=== PATIENT | female | born 1960 | race Caucasian/White ===

== ENCOUNTER 2016-09-13 19:34 | Emergency (ER) | payer BC ==
[2016-09-13 20:11] VITALS: BP 132/90
--- NOTE | 2016-09-13 20:41 | UC ---
Eye Complaint HPI - HPI Summary HPI Summary: The patient comes in today for: 1. Right eye pain: Onset: 2-3 hours. Palliative/provocative: Nothing makes her symptoms better or worse. Quality: FB sensation. Region/radiation: Right eye. Severity: 6/10 Time: Comes and goes. 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 She states that the window was open, but she did not feel anything. Contacts: None. Treatment: She tried to wash her eye on the bus with a moist cloth. Vision: "OK." * - History of Current Complaint Chief Complaint: UCEye Stated Complaint: FB IN EYE Time Seen by Provider: 09/13/16 20:28 Hx Obtained From: Patient Hx Last Menstrual Period: "a few years.' - Allergies/Home Medications Allergies/Adverse Reactions: Allergies Allergy/AdvReac Type Severity Reaction Status Date / Time No Known Allergies Allergy Verified 03/20/15 11:47 PMH/Surg Hx/FS Hx/Imm Hx Previously Healthy: No Endocrine History Of: Denies: Diabetes, Thyroid Disease Cardiovascular History Of: Denies: Cardiac Disorders, Hypertension Respiratory History Of: Denies: COPD, Asthma GI/ History Of: Reports: Gastroesophageal Reflux Denies: Ulcer, Gastrointestinal Bleed, Gall Bladder Disease, Kidney Stones, Diverticulitis, Renal Disease, Urosepsis Neurological History Of: Denies: TIA, CVA, Dementia, Seizures, Migraine Psychological History Of: Reports: Anxiety - PRN XANAX, Depression - ON MEDICATION FOR Denies: Bipolar Disorder, Schizophrenia, Post Traumatic Stress Disorder Cancer History Of: Denies: Lung Cancer, Colorectal Cancer, Breast Cancer, Prostate Cancer, Cervical Cancer Other History Of: Negative For: HIV, Hepatitis B, Hepatitis C, Anticoagulant Therapy - Surgical History Surgical History: Yes Surgery Procedure, Year, and Place: Two [id number]. Uterine Ablations- LORDS IN [place] - Family History Known Family History: Positive: Hypertension Negative: Cardiac Disease - Social History Occupation: Employed Full-time Alcohol Use: Occasionally Substance Use Type: None Smoking Status (MU): Former Smoker Amount Used/How Often: 1/2 PPD X 10 YEARS Have You Smoked in the Last Year: No When Did the Patient Quit Smoking/Using Tobacco: 2.5 YEARS - Immunization History Most Recent Tetanus Shot: 12/2010 Review of Systems Constitutional: Negative Skin: Negative Eyes: Other - FB sensation. ENT: Negative Respiratory: Negative Cardiovascular: Negative Gastrointestinal: Negative Genitourinary: Negative Motor: Negative All Other Systems Reviewed And Are Negative: Yes Physical Exam Triage Information Reviewed: Yes Appearance: Well-Appearing, No Pain Distress, Well-Nourished Vital Signs: Initial Vital Signs Temp 98.4 F 09/13/16 20:06 Pulse 71 09/13/16 20:06 Resp 18 09/13/16 20:06 BP 132/90 09/13/16 20:06 Pulse Ox 100 09/13/16 20:06 Vital Signs Reviewed: Yes Eyes: Positive: Conjunctiva Clear, Other: - FB (small) of the upper inner eye lid.. Negative: Discharge ENT: Positive: Hearing grossly normal. Negative: Pharyngeal erythema, Nasal congestion, Nasal drainage, TM bulging, TM dull, TM red, Tonsillar swelling, Tonsillar exudate Dental: Negative: Gross Decay/Caries @, Dental Fracture @ Neck: Positive: Supple, Nontender, No Lymphadenopathy. Negative: Nuchal Rigidity Respiratory: Positive: Lungs clear, No respiratory distress, No accessory muscle use. Negative: Crackles, Wheezing Cardiovascular: Positive: RRR, No Murmur Abdomen Description: Positive: Nontender, No Organomegaly, Soft. Negative: Distended, Guarding Musculoskeletal: Positive: Strength Intact, ROM Intact, No Edema Neurological: Positive: Alert, Muscle Tone Normal Psychological: Positive: Age Appropriate Behavior, Consolable Skin: Negative: rashes, breakdown UC Physical Exam Vital Signs On Initial Exam: Initial Vitals Temp Pulse Resp BP Pulse Ox 98.4 F 71 18 132/90 100 09/13/16 20:06 09/13/16 20:06 09/13/16 20:06 09/13/16 20:06 09/13/16 20:06 - Eye Exam EOMI: Yes Eye Exam: right eye: fluorescein in - right upper eye lid had small FB removed. (-) corneal lesion., bilateral eye: PERRL Eye Complaint Course/Dx - Differential Dx/Diagnosis Differential Diagnosis/HQI/PQRI: Foreign Body Provider Diagnoses: Foreign body of right eye removed. Discharge - Discharge Plan Condition: Stable Disposition: HOME Patient Education Materials: Eye Foreign Body (ED) Forms: *Work Release Referrals: Natalie Perez MD [Primary Care Provider] - If Needed (Please see your primary care provider as he or she has directed you in the past and as needed.) Additional Instructions: Get [id number] anti-histamine eye drops as needed in the right eye.
[2016-09-13] MEDS ORDERED: Fluorescein Sodium TOPICAL* 1 MG TEST ONE (20:44)
[2016-09-13] MEDS ORDERED: BSS OPTH.SOL* BTL ONE (20:44)
[2016-09-13] MEDS ORDERED: Tetracaine 0.5% OPTH.SOL 15ML* BTL ONE (20:44)
== END 2016-09-13 21:10 | disposition home or self-care (01) ==
LOC: UCEAST 19:34
DX: T15.11XA Foreign body in conjunctival sac, right eye, initial encounter (principal); X58.XXXA Exposure to other specified factors, initial encounter; Y93.9 Activity, unspecified; Y92.9 Unspecified place or not applicable; Z87.891 Personal history of nicotine dependence
CPT/HCPCS: 99211; A9270-GY; G0463

== ENCOUNTER 2018-08-03 19:28 | Emergency (ER) | payer BC ==
--- NOTE | 2018-08-03 19:35 | UC ---
Throat Pain/Nasal Martin HPI - HPI Summary HPI Summary: 58 yo female presents with sinus pain/pressure/congestion. She tells me that for about 1.5 weeks she has had sinus congestion, sore throat, and dry cough. Her sore throat and dry cough have resolved, but her sinus symptoms have continued and have worsened over the last 3-4 days. She is having upper teeth pain due to sinus pressure and gets frontal headaches periodically throughout the day. She has been taking mucinex and nyquill/dayquill with no relief. Denies fever, chills, sore throat, cough, n/v. - History of Current Complaint Stated Complaint: SINUS CONGESTION Time Seen by Provider: 08/03/18 19:35 Hx Obtained From: Patient Hx Last Menstrual Period: "a few years.' Onset/Duration: Gradual Onset Severity: Moderate Pain Intensity: 7 Pain Scale Used: 0-10 Numeric - Allergies/Home Medications Allergies/Adverse Reactions: Allergies Allergy/AdvReac Type Severity Reaction Status Date / Time No Known Allergies Allergy Verified 08/03/18 19:42 PMH/Surg Hx/FS Hx/Imm Hx GI/ History: Gastroesophageal Reflux Other History Of: Negative For: HIV, Hepatitis B, Hepatitis C, Anticoagulant Therapy - Surgical History Surgical History: Yes Surgery Procedure, Year, and Place: Two [id number]-[id number]. Uterine Ablations- LORDS IN [place] - Family History Known Family History: Positive: Hypertension Negative: Cardiac Disease - Social History Occupation: Employed Full-time Lives: With Family Alcohol Use: Occasionally Substance Use Type: None Smoking Status (MU): Former Smoker Amount Used/How Often: 1/2 PPD X 10 YEARS Have You Smoked in the Last Year: No When Did the Patient Quit Smoking/Using Tobacco: 2.5 YEARS - Immunization History Most Recent Tetanus Shot: 12/2010 Review of Systems All Other Systems Reviewed And Are Negative: Yes Constitutional: Positive: Negative Skin: Positive: Negative Eyes: Positive: Negative ENT: Positive: Nasal Discharge, Sinus Congestion, Sinus Pain/Tenderness Respiratory: Positive: Negative Cardiovascular: Positive: Negative Gastrointestinal: Positive: Negative Neurovascular: Positive: Negative Neurological: Positive: Negative Psychological: Positive: Negative Physical Exam - Summary Physical Exam Summary: GENERAL: NAD. WDWN. No pain distress. SKIN: No rashes, sores, lesions, or open wounds. HEENT: Head: AT/NC Eyes: EOM intact. Conjunctiva clear without inflammation or discharge. Ears: Hearing grossly normal. TMs intact, no bulging, erythema, or edema. Nose: Nasal mucosa mildly swollen and erythematous with yellow/ clear discharge. TTP maxillary and frontal sinus. Positive post nasal drip Throat: Posterior oropharynx without exudates, erythema, or tonsillar enlargement. Uvula midline. NECK: Supple. Nontender. No lymphadenopathy. CHEST: CTAB. No r/r/w. No accessory muscle use. Breathing comfortably and in no distress. CV: RRR. Without m/r/g. Pulses intact. NEURO: Alert. PSYCH: Age appropriate behavior. Triage Information Reviewed: Yes Vital Signs: Vital Signs: Temp Pulse Resp BP Pulse Ox 97.8 F 81 16 134/99 98 08/03/18 19:35 08/03/18 19:35 08/03/18 19:35 08/03/18 19:35 08/03/18 19:35 Vital Signs Reviewed: Yes Throat Pain/Nasal Course/Dx - Course Course Of Treatment: Sinusitis - Differential Dx/Diagnosis Provider Diagnosis: Sinusitis Discharge - Sign-Out/Discharge Documenting (check all that apply): Patient Departure All imaging exams completed and their final reports reviewed: No Studies - Discharge Plan Condition: Stable Disposition: HOME Prescriptions: Amoxicillin PO (*) [Amoxicillin 875 MG (*)] 875 mg PO BID #14 tab Patient Education Materials: Sinusitis (ED) Referrals: Natalie Perez MD [Primary Care Provider] - Additional Instructions: If you develop a fever, shortness of breath, chest pain, new or worsening symptoms - please call your PCP or go to the ED. Your blood pressure was high at todays visit. Please see your primary provider within 4 weeks for recheck and re-evaluation. - Billing Disposition and Condition Condition: STABLE Disposition: Home - Attestation Statements Provider Attestation: I was available for consult. This patient was seen by the [facility]. The patient was not presented to, seen by, or examined by me. -Domo
[2018-08-03 19:41] VITALS: BP 134/99
== END 2018-08-03 20:15 | disposition home or self-care (01) ==
LOC: UCEAST 19:28
DX: J32.9 Chronic sinusitis, unspecified (principal); R05 Cough; J02.9 Acute pharyngitis, unspecified; K08.89 Other specified disorders of teeth and supporting structures; Z87.891 Personal history of nicotine dependence
CPT/HCPCS: 99212; G0463

== ENCOUNTER 2018-11-03 13:46 | Emergency (ER) | payer BC ==
[2018-11-03 15:19] VITALS: BP 138/92
[2018-11-03] MEDS ORDERED: Ketorolac INJ* 60 MG/2 ML VIAL IM ONE (15:45)
--- NOTE | 2018-11-03 15:45 | UC ---
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 she has been unable to work. she has tried some Ib. - History of Current Complaint Chief Complaint: UCBackPain Stated Complaint: BACK PAIN Time Seen by Provider: 11/03/18 15:35 Hx Obtained From: Patient Hx Last Menstrual Period: "a few years.' Onset/Duration: Sudden Onset Timing: Constant Pain Intensity: 7 Aggravating Factor(s): Movement Alleviating Factor(s): Rest Associated Signs And Symptoms: Negative: Fever, Weakness, Numbness, Tingling, Abdominal Pain, Flank Pain, Bladder Incontinence, Bowel Incontinence - Risk Factors Cauda Equina Risk Factors: Negative - Allergies/Home Medications Allergies/Adverse Reactions: Allergies Allergy/AdvReac Type Severity Reaction Status Date / Time No Known Allergies Allergy Verified 11/03/18 15:19 PMH/Surg Hx/FS Hx/Imm Hx - Additional Past Medical History Additional PMH: sleep disturbance Other History Of: Negative For: HIV, Hepatitis B, Hepatitis C, Anticoagulant Therapy - Surgical History Surgical History: Yes Surgery Procedure, Year, and Place: Two [id number]. Uterine Ablations- LORDS IN [place] - Family History Known Family History: Positive: Hypertension Negative: Cardiac Disease - Social History Occupation: Employed Full-time Alcohol Use: Rare Substance Use Type: None Smoking Status (MU): Former Smoker Amount Used/How Often: 1/2 PPD X 10 YEARS Have You Smoked in the Last Year: No When Did the Patient Quit Smoking/Using Tobacco: 6 years ago - Immunization History Most Recent Tetanus Shot: 12/2010 Review of Systems All Other Systems Reviewed And Are Negative: Yes Constitutional: Negative: Fever Gastrointestinal: Negative: Abdominal Pain Musculoskeletal: Positive: Decreased ROM - back Neurological: Negative: Weakness, Paresthesia, Numbness Physical Exam Triage Information Reviewed: Yes Appearance: Well-Appearing Vital Signs: Initial Vital Signs Temp 99.4 F 11/03/18 15:10 Pulse 94 11/03/18 15:10 Resp 18 11/03/18 15:10 BP 138/92 11/03/18 15:10 Pulse Ox 98 11/03/18 15:10 Vital Signs Reviewed: Yes Eyes: Positive: Conjunctiva Clear Neck: Positive: Supple, Nontender, No Lymphadenopathy, Other: - c-spine non tender Respiratory: Positive: Lungs clear Cardiovascular: Positive: RRR Abdomen Description: Positive: Nontender, No Organomegaly, Soft. Negative: Pulsatile Mass Bowel Sounds: Positive: Present Musculoskeletal: Positive: Other: - Back: no gross deformity, swelling or rash. spine is non tender. R paraspinal mm tenderness in lumbar region. Limited rom low back due to spasm. no saddle anesthesia. 5/5 strength, 2+ reflexes and sensation intactx4. steady gait. Neurological: Positive: Alert Psychological: Positive: Age Appropriate Behavior Skin: Negative: Rashes Back Pain Course/Dx - Differential Dx/Diagnosis Differential Diagnosis/HQI/PQRI: Other - no concern for infection, fx, acute abdomen or cauda equina. Provider Diagnosis: Low back pain Discharge - Sign-Out/Discharge Documenting (check all that apply): Patient Departure All imaging exams completed and their final reports reviewed: No Studies - Discharge Plan Condition: Stable Disposition: HOME Prescriptions: Cyclobenzaprine TAB* [Flexeril 10 MG TAB*] 10 mg PO TID PRN #10 tab PRN Reason: Pain - Back Naproxen [Naprosyn 500 mg tab] 500 mg PO BID 5 Days #10 tablet Patient Education Materials: Acute Low Back Pain (ED) Forms: *Work Release Referrals: Natalie Perez MD [Primary Care Provider] - 5 Days - Billing Disposition and Condition Condition: STABLE Disposition: Home - Attestation Statements Provider Attestation: Per institutional requirements, I have reviewed the chart, however, I was not consulted specifically or made aware of this patient by the midlevel provider. I did not personally evaluate, interact with , or disposition this patient.
== END 2018-11-03 16:01 | disposition home or self-care (01) ==
LOC: UCCORT 13:46
DX: M54.5 Low back pain (principal); Z87.891 Personal history of nicotine dependence
CPT/HCPCS: 99212; G0463; J1885

== ENCOUNTER 2018-12-25 19:40 | Emergency (ER) | payer BC ==
[2018-12-25 20:49] VITALS: BP 137/95
--- NOTE | 2018-12-25 21:05 | UC ---
UC General HPI - HPI Summary HPI Summary: pt reports a several year of spontaneous bouts of diarrhea. long family hx of the same. now it seems to occur more often and is more severe. she had a bout last while at work and again today. she has no fever or abdominal pain only cramping with the diarrhea. no blood in stool. she denies hx IBD. her last colonoscopy was over 5 years ago and she had polyps at that time but no diverticular disease. pt requesting work note for today. she has not d/w her pcp. - History of Current Complaint Chief Complaint: UCGI Stated Complaint: DIARRHEA (1DAY) Time Seen by Provider: 12/25/18 20:55 Hx Last Menstrual Period: "a few years.' Pain Intensity: 2 - Allergy/Home Medications Allergies/Adverse Reactions: Allergies Allergy/AdvReac Type Severity Reaction Status Date / Time No Known Allergies Allergy Verified 12/25/18 20:49 PMH/Surg Hx/FS Hx/Imm Hx - Additional Past Medical History Additional PMH: sleep disturbance, back pain Other History Of: Negative For: HIV, Hepatitis B, Hepatitis C, Anticoagulant Therapy - Surgical History Surgical History: Yes Surgery Procedure, Year, and Place: Two [id number]. Uterine Ablations- LORDS IN [place] - Family History Known Family History: Positive: Hypertension Negative: Cardiac Disease - Social History Occupation: Employed Full-time Alcohol Use: Rare Substance Use Type: None Smoking Status (MU): Former Smoker Amount Used/How Often: 1/2 PPD X 10 YEARS Have You Smoked in the Last Year: No When Did the Patient Quit Smoking/Using Tobacco: 6 years ago - Immunization History Most Recent Tetanus Shot: 12/2010 Review of Systems All Other Systems Reviewed And Are Negative: Yes Constitutional: Negative: Fever, Chills Gastrointestinal: Negative: Vomiting, Nausea Physical Exam Triage Information Reviewed: Yes Appearance: Well-Appearing Vital Signs: Initial Vital Signs Temp 98.1 F 12/25/18 20:33 Pulse 89 12/25/18 20:33 Resp 24 12/25/18 20:33 BP 137/95 12/25/18 20:33 Pulse Ox 98 12/25/18 20:33 Vital Signs Reviewed: Yes Eyes: Positive: Conjunctiva Clear ENT: Positive: Normal ENT inspection Neck: Positive: Supple Respiratory: Positive: Lungs clear, Normal breath sounds Cardiovascular: Positive: RRR, No Murmur Abdomen Description: Positive: Nontender, No Organomegaly, Soft. Negative: Distended, Guarding Bowel Sounds: Positive: Present Musculoskeletal: Positive: ROM Intact Neurological: Positive: Alert Psychological: Positive: Age Appropriate Behavior Skin Exam: Normal Course/Dx - Differential Dx - Multi-Symptom Differential Diagnoses: Other - non toxic. no acute abdomen. no current s/s's. pt advised of need to f/u with GI. - Diagnoses Provider Diagnosis: Diarrhea Discharge - Sign-Out/Discharge Documenting (check all that apply): Patient Departure All imaging exams completed and their final reports reviewed: No Studies - Discharge Plan Condition: Stable Disposition: HOME Patient Education Materials: Acute Diarrhea (ED) Forms: *Work Release Referrals: Natalie Perez MD [Primary Care Provider] - [facility] [Provider Group] - As Soon As Possible - Billing Disposition and Condition Condition: STABLE Disposition: Home
== END 2018-12-25 21:13 | disposition home or self-care (01) ==
LOC: UCCORT 19:40
DX: R19.7 Diarrhea, unspecified (principal); Z87.891 Personal history of nicotine dependence
CPT/HCPCS: 99211; G0463

== ENCOUNTER 2019-03-05 16:11 | Emergency (ER) | payer BC, OTHER ==
[2019-03-05 16:41] VITALS: BP 159/107
--- NOTE | 2019-03-05 16:47 | UC ---
Neck Pain HPI - HPI Summary HPI Summary: 58 yo female presents with neck pain. 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 She continued driving for the next hour or so. The following days had pain to the area and into her left shoulder. Pain is worse with movement. She saw an [facility] doctor about a week ago and was referred to physical therapy. Since that time pt has been to physical therapy and feels that it would help, but that she has to go right back to work after completing PT and does not have a chance to rest. She has been taking aleve for her pain with minimal relief. She has intermittent tingling in her left shoulder into her left hand. She is right hand dominant. Denies headache, dizziness. - History of Current Complaint Chief Complaint: UCGeneralIllness Stated Complaint: NECK INJURY Time Seen by Provider: 03/05/19 16:47 Hx Obtained From: Patient Hx Last Menstrual Period: "a few years.' Severity: Severe Pain Intensity: 8 Pain Scale Used: 0-10 Numeric - Allergies/Home Medications Allergies/Adverse Reactions: Allergies Allergy/AdvReac Type Severity Reaction Status Date / Time No Known Allergies Allergy Verified 12/25/18 20:49 PMH/Surg Hx/FS Hx/Imm Hx - Additional Past Medical History Additional PMH: Insomnia Other History Of: Negative For: HIV, Hepatitis B, Hepatitis C, Anticoagulant Therapy - Surgical History Surgical History: Yes Surgery Procedure, Year, and Place: Two [id number]. Uterine Ablations- LORDS IN [place] - Family History Known Family History: Positive: Hypertension Negative: Cardiac Disease - Social History Lives: With Family Alcohol Use: Rare Substance Use Type: None Smoking Status (MU): Former Smoker Amount Used/How Often: 1/2 PPD X 10 YEARS Have You Smoked in the Last Year: No When Did the Patient Quit Smoking/Using Tobacco: 6 years ago - Immunization History Most Recent Tetanus Shot: 12/2010 Review of Systems All Other Systems Reviewed And Are Negative: No Constitutional: Positive: Negative Skin: Positive: Negative Eyes: Positive: Negative ENT: Positive: Negative Respiratory: Positive: Negative Cardiovascular: Positive: Negative Gastrointestinal: Positive: Negative Neurovascular: Positive: Negative Musculoskeletal: Positive: Other: - Neck pain Neurological: Positive: Paresthesia Psychological: Positive: Negative Physical Exam - Summary Physical Exam Summary: GENERAL: NAD. WDWN. No pain distress. SKIN: No rashes, sores, lesions, or open wounds. CHEST: No accessory muscle use. Breathing comfortably and in no distress. CV: Pulses intact radial and ulnar. Cap refill <2seconds MSK: NECK: FROM, pain at left SCM and levator with turning to left side. Negative spurlings. B/L UEs: FROM. Strength 5/5 including occupational ther strength. No edema or obvious bony deformities. Negative empty can. NEURO: Alert. Sensations intact C4-T1 b/l. PSYCH: Age appropriate behavior. Triage Information Reviewed: Yes Vital Signs: Initial Vital Signs Temp 97.2 F 03/05/19 16:34 Pulse 78 03/05/19 16:34 Resp 16 03/05/19 16:34 BP 159/107 03/05/19 16:34 Pulse Ox 100 03/05/19 16:34 Vital Signs Reviewed: Yes Diagnostics - Radiology Cervical XR Radiology Interpretation Completed By: Radiologist Summary of Radiographic Findings: Report: Straightening relative to normal cervical lordosis without facet subluxation at any level. Negative for fracture. Degenerative spondylosis with moderately severe C4-C5 and C5-C6 disc space narrowing and associated vertebral and plate osteophytosis. Facet joint osteoarthritis. Uncinate process spurring results in moderate osseous foraminal stenosis at C5-C6 bilaterally. Unremarkable prevertebral soft tissue contours. IMPRESSION: #. No radiographic evidence for traumatic cervical spine injury. #. 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 Neck Pain Course/Dx - Course Course Of Treatment: Will refer her to Dr. Garcia of Occupational Medicine as she does not want to return to her previous [facility] physician. Advised to continue with physical therapy - will rx for flexeril and naproxen. Will write her out of work through friday 03/09 to allow her to attend physical therapy, take her medications, and rest her neck. - Differential Dx/Diagnosis Provider Diagnosis: Neck pain Discharge ED - Sign-Out/Discharge Documenting (check all that apply): Patient Departure All imaging exams completed and their final reports reviewed: Yes - Discharge Plan Condition: Stable Disposition: HOME Prescriptions: Cyclobenzaprine TAB* [Flexeril 10 MG TAB*] 10 mg PO BID PRN #20 tab PRN Reason: Pain - Moderate Naproxen [Naproxen 500 mg tab] 500 mg PO BID PRN #20 tablet.dr RAMAN Reason: Pain - Moderate Patient Education Materials: Neck Pain (ED) Forms: *Work Release Referrals: Natalie Perez MD [Primary Care Provider] - Hussain Garcia MD [Medical Doctor] - As Soon As Possible Additional Instructions: If you develop a fever, shortness of breath, chest pain, new or worsening symptoms - please call your PCP or go to the ED immediately. Your blood pressure was high at todays visit. Please see your primary provider within 4 weeks for recheck and re-evaluation. Please call Dr. Garcia (Occupational Medicine/Worker's Comp) at the number below to schedule an appointment within 1 week - Billing Disposition and Condition Condition: STABLE Disposition: Home
== END 2019-03-05 18:12 | disposition home or self-care (01) ==
LOC: UCEAST 16:11
DX: M54.2 Cervicalgia (principal); Z87.891 Personal history of nicotine dependence
CPT/HCPCS: 72050; 99212; G0463